=== PATIENT | female | born 1975 | race Caucasian/White ===

== ENCOUNTER → 2023-09-22 15:26 | Outpatient (REF) | payer BC, SELFPAY ==
[2023-10-06 04:12] LABS: HPV Genotype 16 Not Detected; HPV Genotype 18 Detected; HPV, High Risk Detected; HPV, High Risk Source Cervical
== END ==
LOC: CPAP 15:26
PROVIDERS: ATTENDING PHYSICIAN Nurse Practitioner Adult Health
DX: Z01.419 Encounter for gynecological examination (general) (routine) without abnormal findings (principal)
CPT/HCPCS: 87624; G0123

== ENCOUNTER → 2023-10-25 15:29 | Outpatient (REF) | payer BC, SELFPAY ==
[2023-11-05 23:29] LABS: HPV, High Risk Detected; HPV, High Risk Source Cervical
[2023-11-06 13:24] LABS: HPV Genotype 16 Not Detected; HPV Genotype 18/45 by TMA Detected; HPV Genotype Source Cervical
== END ==
LOC: CPAP 15:29
PROVIDERS: ATTENDING PHYSICIAN Obstetrics & Gynecology Gynecology
DX: G24.3 Spasmodic torticollis (principal); R87.615 Unsatisfactory cytologic smear of cervix
CPT/HCPCS: 88305; 87624; 87625; G0123

== ENCOUNTER → 2024-04-10 19:45 | Outpatient (REF) | payer BC, SELFPAY | LOC: WDC 19:45 | PROVIDERS: ATTENDING PHYSICIAN Nurse Practitioner Adult Health; FAMILY PHYSICIAN Physician Assistant Medical | DX: Z12.31 Encounter for screening mammogram for malignant neoplasm of breast (principal) | CPT/HCPCS: 77063; 77067 ==

== ENCOUNTER → 2024-05-13 08:31 | Outpatient (REF) | payer BC, SELFPAY ==
[2024-05-13 09:41] LABS: % Basophils 0.7 % (0-2); % Eosinophils 1.3 % (0-6); % Immature Granulocytes 0.2 % (0-0.5); % Lymphocytes 22.3 % (20.5-51.1); % Monocytes 9.7 % (1.7-9.3); % Neutrophils 65.8 % (42.2-75.2); Absolute Eosinophils 0.1 10^3/uL (0-0.7); Absolute Monocytes 0.4 10^3/uL (0.1-0.6); Hematocrit 40.9 % (37.0-47.0); Hemoglobin 13.8 g/dL (12.0-16.0); Mean Corp Hgb Conc. 33.7 g/dL (33.0-37.0); Mean Corpuscular Hgb 31.7 pg (27.0-31.0); Mean Corpuscular Volume 93.8 fL (81.0-99.0); Mean Platelet Volume 10.7 fL (7.4-10.4); Nucleated Red Blood Cells % 0 %; Platelet Count 255 10^3/uL (130-400); Red Blood Cell Count 4.36 10^6/uL (4.20-5.40); Red Cell Dist. Width 13.1 % (11.5-14.5); White Blood Cell Count 4.5 10^3/uL (4.8-10.8)
[2024-05-13 10:05] LABS: ALT (SGPT) 22 U/L (0-35); AST (SGOT) 33 U/L (14-36); Albumin 4.1 g/dl (3.5-5.0); Alkaline Phosphatase 62 U/L (38-126); Blood Urea Nitrogen 24 mg/dl (7-17); Calcium 9.3 mg/dl (8.4-10.2); Carbon Dioxide 27 mmol/L (22-30); Chloride 104 mmol/L (98-107); Glucose 98 mg/dl (70-99); HDL Cholesterol 90 mg/dl; LDL Cholesterol, Calculated 88 mg/dl; Potassium 4.8 mmol/L (3.5-5.1); Sodium 139 mmol/L (135-145); Total Bilirubin 0.9 mg/dl (0.2-1.3); Total Cholesterol 195 mg/dl (50-199); Total Protein 6.2 g/dl (6.3-8.2); Triglyceride 88 mg/dl (10-149); Very Low Density Lipoprotein 17 mg/dl (0-30); eGFR > 60.00
[2024-05-13 10:53] LABS: TSH Reflex To Free T4 2.19 uIU/ml (0.47-4.68)
== END ==
LOC: REG 08:31
PROVIDERS: ATTENDING PHYSICIAN Physician Assistant Medical
DX: Z00.00 Encounter for general adult medical examination without abnormal findings (principal)
CPT/HCPCS: 36415; 80053; 80061; 84443; 85025

== ENCOUNTER → 2024-09-20 15:12 | Outpatient (REF) | payer BC, SELFPAY ==
[2024-09-20 16:17] LABS: % Basophils 0.7 % (0-2); % Eosinophils 0.7 % (0-6); % Immature Granulocytes 0.4 % (0-0.5); % Lymphocytes 19.2 % (20.5-51.1); % Monocytes 9.8 % (1.7-9.3); % Neutrophils 69.2 % (42.2-75.2); Absolute Lymphocytes 1.1 10^3/uL (1.2-3.4); Absolute Monocytes 0.6 10^3/uL (0.1-0.6); Absolute Neutrophils 3.9 10^3/uL (1.4-6.5); Hematocrit 39.5 % (37.0-47.0); Hemoglobin 12.9 g/dL (12.0-16.0); Mean Corp Hgb Conc. 32.7 g/dL (33.0-37.0); Mean Corpuscular Hgb 30.5 pg (27.0-31.0); Mean Corpuscular Volume 93.4 fL (81.0-99.0); Mean Platelet Volume 10.8 fL (7.4-10.4); Nucleated Red Blood Cells % 0 %; Platelet Count 231 10^3/uL (130-400); Red Blood Cell Count 4.23 10^6/uL (4.20-5.40); Red Cell Dist. Width 12.4 % (11.5-14.5); White Blood Cell Count 5.6 10^3/uL (4.8-10.8)
[2024-09-20 16:22] LABS: Erythrocyte Sed Rate 2 mm/hour (0-20)
[2024-09-20 16:32] LABS: C-Reactive Protein < 5.00 mg/L (0.0-10.00)
[2024-09-23 08:51] LABS: ANA, IgG Reflex to HEp-2 None Detected (None Detected)
[2024-09-23 09:13] LABS: Rheumatoid Agglutinin Less Than 10 IU (<10 IU)
== END ==
LOC: REG 15:12
PROVIDERS: ATTENDING PHYSICIAN Physician Assistant Medical
DX: M25.50 Pain in unspecified joint (principal)
CPT/HCPCS: 36415; 85025; 85652; 86038; 86140; 86430; 86618

== ENCOUNTER → 2024-09-26 14:00 | Outpatient (REF) | payer BC, SELFPAY | LOC: CPAP 14:00 | PROVIDERS: ATTENDING PHYSICIAN Nurse Practitioner Adult Health | DX: Z01.419 Encounter for gynecological examination (general) (routine) without abnormal findings (principal); N87.9 Dysplasia of cervix uteri, unspecified | CPT/HCPCS: 87624 ==

== ENCOUNTER → 2025-01-07 11:56 | Outpatient (REF) | payer BC, SELFPAY | LOC: DHSLP 11:56 | PROVIDERS: ATTENDING PHYSICIAN Internal Medicine; FAMILY PHYSICIAN Physician Assistant Medical | DX: G47.30 Sleep apnea, unspecified (principal); R06.83 Snoring | CPT/HCPCS: 95800 ==